=== PATIENT | male | born 1945 | race Caucasian/White ===

== ENCOUNTER 2017-11-02 11:18 | Outpatient (CLI) | payer MEDICARE, BC, SELFPAY ==
[2017-11-02 12:51] LABS: Abs Immature Grans 0.01 k/cumm (0.0-0.09); Absolute Basophil Count 0.03 k/cumm (0.0-0.2); Absolute Eosinophil Count 0.14 k/cumm (0.0-0.7); Absolute Lymphocyte Count 1.65 k/cumm (1.2-3.4); Absolute Monocyte Count 0.55 k/cumm (0.11-0.7); Absolute Neutrophil Count 4.17 k/cumm (1.2-6.7); Basophils % 0.5; Eosinophils % 2.1; HCT 45.6 % (40.0-50.0); HGB 15.2 g/dL (13.5-17.5); Immature Grans % 0.2; Lymphocytes % 25.2; Mean Corp. HGB Concentration 33.3 g/dL (32.0-36.0); Mean Platelet Volume 11.6 fL (8.0-11.0); Monocytes % 8.4; Neutrophils % 63.6; Platelet Count 210 x1000/uL (130-400); RBC 4.75 m/cumm (4.50-6.00); RBC Distribution Width 13.6 % (11.8-14.1); White Blood Cell Count 6.55 k/cumm (4.4-10.8)
[2017-11-02 14:13] LABS: ALT 24 U/L (12-78); AST 21 U/L (15-37); Albumin 3.8 g/dL (3.4-5.0); Alkaline Phosphatase 65 U/L (46-116); Anion Gap 8.5 mmol/L (3-11); BUN 18 mg/dL (7-18); Bilirubin, Total 0.5 mg/dL (0.2-1.0); CO2 27.5 mmol/L (21.0-32.0); CREATININE 1.03 mg/dL (0.70-1.30); Calcium 9.3 mg/dL (8.5-10.1); Chloride 104 mmol/L (98-107); Glucose 80 mg/dL (70-100); Potassium 4.2 mmol/L (3.5-5.1); Sodium 140 mmol/L (136-145); Total Protein 7.3 g/dL (6.4-8.2)
[2017-11-02 17:19] LABS: ESR 12 MM/HR (1-20)
== END 2017-11-02 11:38 ==
PROVIDERS: PCP Family Medicine; Visit Provider Family Medicine
DX: R51 Headache (principal)
CPT/HCPCS: 36415; 80053; 85652; 85025

== ENCOUNTER 2017-11-04 01:16 | Outpatient (CLI) | payer MEDICARE, BC, SELFPAY ==
--- NOTE | 2017-11-04 12:38 | DI.CT_ITS ---
SYMPTOMS/DIAGNOSIS: LEFT-SIDED RETROORBITAL HEADACHE, R51 CRANIAL CT: A noncontrast enhanced examination was performed. Mild atrophic changes are noted consistent with the patient's age. There is no evidence of an intra/extra -axial hemorrhage, edema, mass or territorial infarct. There are small ill- defined areas of diminished absorption in the frontoparietal white matter bilaterally consistent with small vessel disease. The ventricles are normal. There is no evidence of a skull fracture. As visualized, the bony orbits and intraorbital contents appear intact. There are small retention cysts in the inferior portion of the right maxillary antrum. The paranasal sinuses are otherwise unremarkable. There is no evidence of a mastoid effusion. SUMMARY: Atrophic changes and evidence of small vessel disease. No evidence of a hemorrhage, mass or infarct.
== END 2017-11-04 01:36 ==
PROVIDERS: PCP Family Medicine; Visit Provider Family Medicine
DX: R51 Headache (principal); I67.9 Cerebrovascular disease, unspecified; G31.9 Degenerative disease of nervous system, unspecified
CPT/HCPCS: 70450

== ENCOUNTER 2018-01-21 09:57 | Outpatient (CLI) | payer MEDICARE, BC, SELFPAY ==
[2018-01-21 13:14] LABS: TSH 1.45 uIU/mL (0.358-3.74)
== END 2018-01-21 10:17 ==
PROVIDERS: PCP Family Medicine; Visit Provider Family Medicine
DX: R53.83 Other fatigue (principal)
CPT/HCPCS: 36415; 84443

== ENCOUNTER → 2018-02-25 10:19 | Outpatient (BNVA) | payer MEDICARE, BC, SELFPAY | PROVIDERS: PCP Family Medicine; Referring Provider Family Medicine; Visit Provider Physical Therapy Assistant | DX: Z12.11 Encounter for screening for malignant neoplasm of colon (principal); Z86.010 Personal history of colon polyps; Z79.82 Long term (current) use of aspirin; I10 Essential (primary) hypertension ==

== ENCOUNTER 2018-03-04 07:18 | Day surgery (SDC) | payer MEDICARE, BC, SELFPAY ==
[2018-03-04 07:37] VITALS: BP 136/79; PULSE 70; RESP 16; TEMP 35.5; O2SAT 95
[2018-03-04] MEDS: Lactated Ringers 1,000 ML 80 ML IV (07:56)
--- NOTE | 2018-03-04 09:53 | BOWEL_PTH ---
PATIENT: Andrew Lim LOC: [facility] U#:[id number] AGE/SX: 72/M ROOM: RE03/04/[address]: Valentino Aden III : 1945 BED: DIS: 03/04/2018 SPEC #: [id number] RECD: 03/04/18 12:58 STATUS: MARLON RELina #: [id number] RANJANA: 03/04/18 09:[address]: Valentino Aden III DEPT: Surgical Specimen RECD BY: Nirali Berg ENTERED: 03/04/18 12:59 SP TYPE: Bowel OTHR DR: Mu Blanco MD Tissues: 1 - BIOPSY BOWEL 2 - BIOPSY BOWEL Procedures: GROSS AND MICRO LEVEL 4 Comments: [id number]
--- NOTE | 2018-03-04 11:02 | W.COLOREPORT ---
Date of service: 03/04/18 Time of Service: 11:02 Colonoscopy Report Date of procedure: 03/04/18 Pre-op diagnosis general: screening colonoscopy Post-op diagnosis procedure note: other (chacon diverticulosis, cecal polyp, sigmoid polyps) Procedure: colonoscopy Surgeon: Valentino Aden III Anesthesia proc note operative: MAC Pathology: other (2 polyps sigmoid, one cecum) Complications: None Disposition: PACU Prep: TenzinYTERODOLFO Procedure Description: After informed consent was obtained the patient was taken to the procedure room and placed in a left decubitous position. Monitors were applied and a time out was done. The patients name, date of , procedure, allergies to medications and metal in their body was reviewed. The patient was then sedated. Once sedated and comfortable a rectal exam was done. External exam was normal. Internal exam revealed a normal sphincter tone and no palpable masses. The prostate normal. The scope was then introduced and retrofelexed. one internal hemorrhoids were identified. The scope was then advanced to the cecum moderate difficulty due to chacon-diverticulosis. The TI and appendiceal orifice were identified. The prep was adequate. The scope was then slowly retracted over 10 minutes back into the rectum. Polyps were removed at sigmois and cecum. The scope was removed and the patient was woken up and taken back to Same day surgery in stable condition. The patient tolerated the procedure well and there were no immediate complications. Follow up: The patient should follow up in 3 years unless they develop changes in bowel habits or other new gastrointestinal complaints.
--- NOTE | 2018-03-04 11:05 | W.PM.DSUDISC ---
Discharge Plan Disposition Patient Disposition: HOME Condition: Stable Discharge Details Reason For Visit: screening colonoscopy Attending Provider: Valentino Aden III Primary Care Provider: Mu Blanco Home Meds and New Rx's Prescriptions: Continued clobetasol-emollient 0.05 % cream 15 gm Topical BID Qty: 1 RF: 2 bisacodyl [Dulcolax (bisacodyl)] 5 mg tablet,delayed release (DR/EC) 5 mg PO ONCE Qty: 4 RF: 0 polyethylene glycol 3350 17 gram/dose powder 255 g PO ONCE Qty: 255 RF: 0 omeprazole 40 mg capsule,delayed release(DR/EC) 40 mg PO DAILY Qty: 90 RF: 4 ibuprofen 200 mg capsule 400 mg PO BID PRNRF: 0 simvastatin 40 mg tablet 40 mg PO DAILY Qty: 90 RF: 4 aspirin [Adult Low Dose Aspirin] 81 MG tablet,delayed release (DR/EC) 1 tab PO DAILY RF: 0 acetaminophen [Acetaminophen Extra Strength] 500 MG tablet 1,000 mg PO TID PRN PRNQty: 60 RF: 0 Discharge Instructions Stand Alone Forms: Colonoscopy Post Instructions, Kathrine Benavides (DSU) Activity:: Activity as Tolerated Diet:: As Tolerated Discharge Orders Discharge Orders: Discharge Order (Routine); Ordered 03/04/18 Ordered By: Valentino Aden III DS: Diagnosis Discharge Diagnosis (1) Sessile colonic polyp: Status: Chronic (2) Diverticulosis: Status: Acute
[2018-03-04 11:40] VITALS: BP 111/68; PULSE 53; RESP 16; TEMP 35.2; O2SAT 99
== END 2018-03-04 11:55 | disposition home or self-care (01) ==
PROVIDERS: PCP Family Medicine; Visit Provider Surgery
PROC: 0DJD8ZZ Inspection of Lower Intestinal Tract, Via Natural or Artificial Opening Endoscopic (ICD-10-PCS; CPT 45378; principal; 2018-03-04 08:30)
DX: Z12.11 Encounter for screening for malignant neoplasm of colon (principal); D12.0 Benign neoplasm of cecum; K63.5 Polyp of colon; K57.30 Diverticulosis of large intestine without perforation or abscess without bleeding; K64.0 First degree hemorrhoids; Z86.010 Personal history of colon polyps; Z87.19 Personal history of other diseases of the digestive system; I10 Essential (primary) hypertension; K21.9 Gastro-esophageal reflux disease without esophagitis; F17.210 Nicotine dependence, cigarettes, uncomplicated
CPT/HCPCS: 45380; 88305

== ENCOUNTER 2019-02-03 01:20 | Outpatient (CLI) | payer MEDICARE, BC, SELFPAY ==
[2019-02-03 11:37] LABS: BUN 19 mg/dL (7-18); CREATININE 1.08 mg/dL (0.70-1.30); Calcium 8.9 mg/dL (8.5-10.1); Chloride 103 mmol/L (98-107); Glucose 88 mg/dL (74-106); Potassium 4.6 mmol/L (3.5-5.1); Sodium 138 mmol/L (136-145)
== END 2019-02-03 01:40 ==
PROVIDERS: PCP Family Medicine; Visit Provider Family Medicine
DX: I10 Essential (primary) hypertension (principal)
CPT/HCPCS: 36415; 80048; 80061

== ENCOUNTER 2019-02-09 03:09 | Outpatient (CLI) | payer MEDICARE, BC, SELFPAY ==
[2019-02-09 11:22] LABS: Calculated LDL 107 mg/dL; Cholesterol 196 mg/dL (<200); HDL Cholesterol 67 mg/dL (40-60); Triglyceride 111 mg/dL (<150)
== END 2019-02-09 03:29 ==
PROVIDERS: PCP Family Medicine; Visit Provider Family Medicine
DX: E78.5 Hyperlipidemia, unspecified (principal)
CPT/HCPCS: 36415; 80061

== ENCOUNTER 2020-03-04 05:09 | Outpatient (CLI) | payer MEDICARE, BC, SELFPAY ==
[2020-03-04 13:12] LABS: CREATININE 1.02 mg/dL (0.70-1.30); Calculated LDL 77 mg/dL (<100); Cholesterol 160 mg/dL (<200); Glucose 98 mg/dL (74-106); HDL Cholesterol 64 mg/dL (40-60); Potassium 4.5 mmol/L (3.5-5.1); Triglyceride 95 mg/dL (<150)
== END 2020-03-04 05:29 ==
PROVIDERS: PCP Nurse Practitioner; Visit Provider Nurse Practitioner
DX: E78.5 Hyperlipidemia, unspecified (principal); I10 Essential (primary) hypertension
CPT/HCPCS: 36415; 80061; 82947; 82565; 84132

== ENCOUNTER 2020-09-04 13:03 | Outpatient (REF) | payer MEDICARE, BC, SELFPAY ==
[2020-09-05 11:55] LABS: COVID-19 RT-PCR UVMMC Result Negative (Negative)
== END 2020-09-04 13:04 | disposition home or self-care (01) ==
LOC: LBN 13:03
PROVIDERS: PCP Nurse Practitioner; Visit Provider Nurse Practitioner Family
DX: Z20.822 Contact with and (suspected) exposure to COVID-19 (principal)
CPT/HCPCS: U0003; U0005

== ENCOUNTER 2020-11-15 03:53 | Outpatient (CLI) | payer MEDICARE, BC, SELFPAY ==
--- NOTE | 2020-11-15 07:00 | DI.RAD_ITS ---
Exam(s) XR CHEST 2V PA LATERAL EXAM: XR CHEST 2V PA LATERAL CLINICAL HISTORY: recent cough,R05 TECHNIQUE: 2D digital imaging was performed. COMPARISON: CR CHEST 2 VIEWS PA,LAT from 02/12/2014 FINDINGS: The heart is not enlarged. The lungs are clear and well expanded. No pleural effusion seen. Mediastin al contours appear intact. IMPRESSION: Normal chest. RADIATION DOSE DELIVERED: Total DLP
== END 2020-11-15 04:13 ==
PROVIDERS: PCP Nurse Practitioner; Visit Provider Nurse Practitioner
DX: R05.8 Other specified cough (principal)
CPT/HCPCS: 71046

== ENCOUNTER 2021-02-28 01:46 | Outpatient (CLI) | payer MEDICARE, BC, SELFPAY ==
[2021-02-28 09:03] LABS: Anion Gap 7.2 mmol/L (3-11); BUN 17 mg/dL (7-18); CO2 29.8 mmol/L (21.0-32.0); Calcium 9.2 mg/dL (8.5-10.1); Calculated LDL 78 mg/dL (<100); Chloride 97 mmol/L (98-107); Cholesterol 163 mg/dL (<200); Glucose 89 mg/dL (74-106); HDL Cholesterol 69 mg/dL (40-60); Potassium 4.7 mmol/L (3.5-5.1); Sodium 134 mmol/L (136-145); Triglyceride 81 mg/dL (<150)
== END 2021-02-28 01:47 | disposition home or self-care (01) ==
LOC: LBO 01:47
PROVIDERS: PCP Nurse Practitioner; Visit Provider Nurse Practitioner
DX: I10 Essential (primary) hypertension (principal)
CPT/HCPCS: 36415; 80048; 80061

== ENCOUNTER → 2021-07-11 10:42 | Outpatient (BNVA) | payer MEDICARE, BC, SELFPAY | PROVIDERS: PCP Nurse Practitioner; Referring Provider Nurse Practitioner; Visit Provider Physical Therapy Assistant | DX: Z86.010 Personal history of colon polyps (principal); R19.4 Change in bowel habit | CPT/HCPCS: 99203 ==

== ENCOUNTER → 2021-07-17 01:49 | Outpatient (CLI) | payer MEDICARE, BC, SELFPAY ==
--- NOTE | 2021-07-17 07:30 | DI.CTLCSR_ITS ---
Exam(s) CT CHEST LUNG CANCER SCREEN EXAM: CT CHEST LUNG CANCER SCREEN CLINICAL HISTORY: Screening for lung cancer,CURRENT SMOKER,. TECHNIQUE: Imaging Protocol: Low Dose Technique CONTRAST MATERIAL: None COMPARISON: CR XR CHEST 2V PA LATERAL from 11/15/2020 FINDINGS: CHEST: LUNGS: There is a 2 millimeter nodule in the lateral aspect of the right upper lobe (series 2/image 3 8). There is also a 2 millimeters subpleural nodule in the right upper lobe lower down. In the opposite-left lung there are some benign-appearing atelectatic markings in the lingular segmen t. There are no pleural effusions on either side. No significant focal findings in the trachea and mainstem bronchi. MEDIASTINUM: There is no obvious hilar nor mediastinal adenopathy. CARDIAC: Heart size is normal. There is no pericardial effusion.Caliber of the thoracic aorta is wit hin normal limits. OTHER: OSSEOUS: Healed left-sided rib fractures noted. No acute fractures evident. No lytic osseous lesion s identified.. IMPRESSION: 1. Benign-appearing lung findings as described above. 2. No pleural effusions nor intrathoracic adenopathy evident. 3. Lung RADS Cat 2 - Benign Appearance / Behavior: Nodules with a very low likelihood of becoming a c linically active cancer due to size or lack of growth Lung-RADS 1.0 CATEGORIES: Category 0 - Prior chest CT exam(s) being located for comparison. Category 1 - Annual screening in 12 months. No nodules or definitely benign nodules. Category 2 - Annual screening in 12 months. Benign appearance. Nodules with low likelihood of becomin g active cancer. Category 3 - 6-month follow-up. Probably benign. Short-term follow-up suggested. Nodules with low lik elihood of becoming active cancer. Category 4A - 3-month follow-up and CT/PET if >8 mm in size. Suspicious finding. Findings which requi re additional testing. Category 4B - Findings which require additional testing and tissue sampling. Category 4X - Category 3 or 4 nodules with additional features or imaging findings that increases the suspicion of malignancy. Modifier S- Potentially clinically significant findings (non lung cancer) RADIATION DOSE DELIVERED: 85.69mGy.cm Total DLP 1.84mGy CTDIvol DATA REPOSITORY: All CT scans at this facility are submitted to the National Radiology Data Registry (NRDR) Dose Index Registry (DIR) with the [employer] (A[employer]). RADIATION OPTIMIZATION: All CT scans at this facility use at least one of these dose optimization te chniques: automated exposure control; mA and/or kV adjustment per patient size (includes targeted exa ms where dose is matched to clinical indication); or iterative reconstruction.
== END ==
PROVIDERS: PCP Nurse Practitioner
DX: F17.210 Nicotine dependence, cigarettes, uncomplicated (principal); Z12.2 Encounter for screening for malignant neoplasm of respiratory organs; R91.8 Other nonspecific abnormal finding of lung field
CPT/HCPCS: 71271

== ENCOUNTER 2021-07-21 11:16 | Day surgery (SDC) | payer MEDICARE, BC, SELFPAY ==
--- NOTE | 2021-07-21 06:59 | W.COLOREPORT ---
Colonoscopy Report Date of procedure: 07/21/21 Pre-op diagnosis general: Colon cancer screening, hx of polyps Post-op diagnosis procedure note: other (polyps and severe diverticulosis) Procedure: Colonoscopy with polypectomy Surgeon: Diana Marie Anesthesia Type: General LMA/ETT Estimated blood loss (mL): 3 Pathology: other (Transverse polyp, rectal polyp x3) Complications: None Disposition: same day Indications: The patient is here for Colonoscopy pre-op. His last screening was in 2019 and was remarkable for tubular adenoma. He has no family history of colon cancer.? Patient describes having tenesmus and difficulty passing stools despite daily use of stool softener.? Denies having any bloody or black tarry stools. -Discussed colonoscopy bowel prep as well as the procedure. Discussed possible complications of the procedure to include bleeding, pain, perforation, missed small lesion/polyp, sore throat, aspiration and adverse reaction to the medications. Questions were answered to patient?s satisfaction. No guarantees were implied or given.? Prep: Miralax/Dulcolax Procedure Start Time: 12:52 Procedure End Time: 13:24 Retraction Time: 16 minutes Findings: Severe diverticulosis polyps Procedure Description: After informed consent was obtained the patient was taken to the procedure room and placed in a left decubitous position. Monitors were applied and a time out was done. The patients name, date of , procedure, allergies to medications and metal in their body was reviewed. The patient was then sedated. Once sedated and comfortable a rectal exam was done. External exam was normal. Internal exam revealed a normal sphincter tone and no palpable masses. The prostate felt smooth and slightly enlarged. The scope was then introduced and retro-flexed. No internal hemorrhoids, polyps or masses were identified on retro-flexion. The scope was then advanced to the cecum without difficulty. The ileocecal vlave and appendiceal orifice were identified. The prep was adequate. The scope was then slowly retracted over 16 minutes back into the rectum. Polyps were removed with cold forceps in the Transverse polyp and 3 in the rectum. There was severe chacon-diverticulosis noted. The scope was removed and the patient was woken up and taken back to Same day surgery in stable condition. The patient tolerated the procedure well and there were no immediate complications.
--- NOTE | 2021-07-21 07:00 | W.PM.DSUDISC ---
Discharge Plan Disposition Patient Disposition: HOME Condition: Good Discharge Details Reason For Visit: Colonoscopy Attending Provider: Diana Marie Primary Care Provider: Alejandra Miller Home Meds and New Rx's Prescriptions: Continued multivitamin Tablet 1 tab PO DAILY psyllium husk [Metamucil] 0.4 gram capsule 0.4 g PO DAILY nicotine 14 mg/24 hr patch 24 hour 1 patch transdermal DAILY Qty: 28 0RF nicotine 7 mg/24 hr patch 24 hour 1 patch transdermal Q24H Qty: 14 0RF lisinopril 40 mg tablet 40 mg PO DAILY Qty: 90 4RF simvastatin 40 mg tablet 40 mg PO DAILY Qty: 90 4RF omeprazole 40 mg capsule,delayed release(DR/EC) 40 mg PO DAILY Qty: 90 4RF bupropion HCl [Wellbutrin XL] 150 mg tablet extended release 24 hr 150 mg PO QAM Qty: 90 3RF aspirin [Adult Low Dose Aspirin] 81 MG tablet,delayed release (DR/EC) 1 tab PO DAILY Discontinued bisacodyl [Dulcolax (bisacodyl)] 5 mg tablet,delayed release (DR/EC) 5 mg PO ONCE Qty: 4 0RF Rx Instructions: Take according to provider's instructions for colonoscopy prep. polyethylene glycol 3350 17 gram/dose powder 17 g PO ONCE Qty: 238 0RF Rx Instructions: To be taken as directed by prescriber's office for colonoscopy prep. Discharge Instructions Instructions: Diverticulosis (DC), Colorectal Polyps (DC) Additional Instructions: Findings: 4 polyps Severe diverticulosis Follow up: only as needed. Please call if you develop: fevers >101.5 Nausea or Vomiting Abdominal pain that is not transient Rectal bleeding that is more then a tbsp A hard abdomen and inability to pass gas DAY SURGERY UNIT POST ENDOSCOPY INSTRUCTIONS Instructions for everyone who is given Anesthesia: For your safety, please do the following for the next 24 Hours: a. Do not drive or operate dangerous equipment b. Do not drink alcohol beverages or use any recreational drugs for the first 24 hours or while taking pain medications. The medications in your body may have a reaction that can be dangerous. c. Do not make any important decisions or sign any important papers 1. Generally there are no restrictions on your activity after a day or so has gone by, but you may feel a bit fatigued for a few days. 2. After you arrive home you may have a light meal and return to a normal diet as you can tolerate it without feeling sick to your stomach. 3. After surgery, you may feel pain or discomfort. This should be only transient, but if it persists please contact your doctor. 4. If there are any questions regarding the findings of your procedure, please feel free to contact your doctor. 6. If you are unable to contact your doctor with a problem, contact the hospital at [phone]. 7. Continue all your regular medications unless directed otherwise. I understand the above instructions and have no questions. Signature of Patient or Responsible Adult Escort Date/Time Name of Responsible Adult Escort Signature of Nurse Date/Time Activity:: Activity as Tolerated Diet:: high fiber diet Discharge Orders Discharge Orders: Discharge Order (Routine); Ordered 07/21/21 Ordered By: Diana Marie
[2021-07-21 11:34] VITALS: BP 114/69; PULSE 62; RESP 16; TEMP 36.5; O2SAT 97
[2021-07-21] MEDS: Lactated Ringers 1,000 ML 80 ML IV (12:29)
--- NOTE | 2021-07-21 13:10 | BOWEL_PTH ---
PATIENT: Andrew Lim LOC: [facility] U#:[id number] AGE/SX: 75/M ROOM: RE07/21/[address]: Diana Marie MD : 1945 BED: DIS: 07/21/2021 SPEC #: [id number] RECD: 07/21/21 16:30 STATUS: MARLON RELina #: [id number] RANJANA: 07/21/21 13:[address]: Diana Marie DEPT: Surgical Specimen RECD BY: Nirali Berg ENTERED: 07/21/21 16:31 SP TYPE: Bowel OTHR DR: Alejandra Miller, PhD COMMUNICATIONS DIRECTOR Tissues: 1 - BIOPSY BOWEL 2 - BIOPSY BOWEL Procedures: GROSS AND MICRO LEVEL 4 Comments:
[2021-07-21 13:30] VITALS: BP 126/73; PULSE 55; RESP 16; TEMP 36.6; O2SAT 99
--- NOTE | 2021-07-21 13:31 | W.ANESPOSTOP ---
Postoperative Evaluation Date, Time and Location Date Performed: 07/21/21 Time Performed: 13:31 Patient Location: Day Surgery Unit Vital Signs Most Recent Imported Vital Signs: Most Recent Vital Signs Temp Pulse Resp BP Pulse Ox 36.5 C 62 16 114/69 97 07/21/21 11:34 07/21/21 11:34 07/21/21 11:34 07/21/21 11:34 07/21/21 11:34 Pain Score Most Recent Pain Score: Most Recent Pain Score Pain Level 0 07/21/21 11:34 Assessment Mental Status: Awake (Alert & Oriented to Patient Baseline) Airway and Respiratory Function: Patent airway with normal (patient baseline) respiratory exam Cardiovascular Function: Hemodynamically Stable Hydration Status: Adequately Hydrated Nausea & Vomiting: No Nausea or Vomiting Pain: Pt. Denies Any Pain Peripheral Nerve Block: Patient did not receive a nerve block
--- NOTE | 2021-07-21 13:46 | W.ANESPRE ---
General Info Date of Service Date Performed: 07/21/21 Height: 5 ft 9 in Weight: 65.091 kg Body Mass Index (BMI): 21.2 Surgical Procedure: Operation Date: 07/21/21 12:35 Proposed Procedure Side Surgeon p Colonoscopy Diana Marie MD Actual Procedure Side Surgeon p Colonoscopy W/POLYPECTOMY Not Applicable Diana Marie MD Pre-Op Diagnosis Post-Op Diagnosis HX OF POLYPS DIVERTICULOSIS POLYP @ TRANSVERSE COLON & RECTUM (X3) Meds Allergies and Home Medications Allergies Allergy/AdvReac Type Severity Reaction Status Date / Time doxycycline Allergy Severe Anaphylaxsi Verified 07/21/21 11:29 s Home Medication Medication Instructions Recorded aspirin 81 mg tablet,delayed 1 tab PO DAILY 05/02/12 release (Adult Low Dose Aspirin) multivitamin 1 tab PO DAILY 11/08/20 nicotine 14 mg/24 hr daily 1 patch transdermal DAILY #28 ea 11/08/20 transdermal patch nicotine 7 mg/24 hr daily 1 patch transdermal Q24H #14 ea 11/08/20 transdermal patch psyllium husk 0.4 gram capsule 0.4 g PO DAILY 11/08/20 (Metamucil) lisinopril 40 mg tablet 40 mg PO DAILY #90 tabs 02/11/21 omeprazole 40 mg capsule,delayed 40 mg PO DAILY #90 tab-caps 02/11/21 release simvastatin 40 mg tablet 40 mg PO DAILY #90 tabs 02/11/21 bupropion HCl 150 mg 24 hr tablet, 150 mg PO QAM #90 tabs 07/01/21 extended release (Wellbutrin XL) Current Visit Medications: Current Medications Generic Name Dose Route Start Last Admin Trade Name Freq PRN Reason Stop Dose Admin Hyoscyamine Sulfate 0.125 mg 07/21/21 07:03 Hyoscyamine 0.125 Mg Sl/Oral/Chew SL DIRECTED PRN Ringer's Solution 1,000 mls @ 80 mls/hr 07/21/21 06:00 07/21/21 13:20 IV 08/17/21 23:59 80 mls/hr INFUSION GAUTAM Infusion IV Miscellaneous Supplies 1 each 07/21/21 06:00 Iv Access IV 08/17/21 23:59 DIRECTED GAUTAM Ondansetron HCl 4 mg 07/21/21 07:03 Ondansetron 4 Mg/2 Ml Vial IVP Q4H PRN PRN Nausea / Vomiting Sodium Chloride 0 ml 07/21/21 06:00 Normal Saline Flush 10 Ml Syr IV 08/17/21 23:59 PRN PRN Sodium Chloride 0 ml 07/21/21 06:00 Normal Saline 10 Ml Vial IJ 08/17/21 23:59 DIRECTED PRN Sterile Water 0 ml 07/21/21 06:00 Water,Injection,Sterile 10 Ml Vial IJ 08/17/21 23:59 DIRECTED PRN PFSH Active Problems Active Problems: Problem Status Onset Code Lung nodule < 6cm on CT R91.1 Bowel habit changes R19.4 Screening for colon cancer Z12.11 Medical History Medical History Benign prostatic hyperplasia Collagenous colitis (07/30/15) Diverticulosis Excessive cerumen in both ear canals Gastroesophageal reflux disease Hearing loss History of alcoholism History of tobacco use currently Smokes a pipe. Does inhale declines CT screen Hyperlipidemia Hypertension Osteoarthritis Primary osteoarthritis of both hands (01/10/15) Primary osteoarthritis of left foot (01/10/15) Raynaud's disease Rhinitis, chronic Sessile colonic polyp (07/12/15) Shoulder pain, right Trochanteric bursitis of right hip Tubular adenoma of colon (03/04/18) Dr Valentino Aden, [facility], Dr Marie recommends repeat 5 years. Weight loss Surgical History Surgical History Colonoscopy - IV Sedation (05/12/12) [facility] [place]; polyps (3) Vasectomy Tobacco Smoking/Tobacco Use Status: Current every day Substance Use Substance use: Never Substance use type: does not use Vital Signs and Lab Results Vital Signs Most Recent Vital Signs in EMR: Most Recent Vital Signs Temp Pulse Resp BP Pulse Ox 36.6 C 55 L 16 126/73 99 07/21/21 13:30 07/21/21 13:30 07/21/21 13:30 07/21/21 13:30 07/21/21 13:30 Lab Results Blood Type / Crossmatch: No Data to Display Complete Blood Count: No Data to Display Complete Metabolic Panel: No Data to Display Liver Function Panel: No Data to Display Coagulation Panel: No Data to Display Cardiac Panel: No Data to Display Arterial Blood Gas: No Data to Display Venous Blood Gas: No Data to Display Pancreas Panel: No Data to Display Thyroid Panel: No Data to Display Infectious Disease: No Data to Display Blood Cultures: No Data to Display Toxicology Panel: No Data to Display Anesthesia Assessment and Plan Anesthesia History Personal History: No History of Anesthesia Complications Family History: No Family History of Anesthesia Complications Exercise Tolerance Exercise Tolerance: Metabolic Equivalents>4 Pertinent Negatives Pertinent Negatives: No Major Cardiovascular Symptoms or Complaints and No Major Pulmonary Symptoms or Complaints Cardiac & Pulmonary Exam Cardiac Exam: Normal S1/S2 Heart Sounds Pulmonary Exam: Clear Bilateral Breath Sounds Implantable Cardiac Device Does patient have a Pacemaker or an ICD?: No Airway Exam Known Difficult Airway: No Mallampati Class: 2 Mouth Opening: Normal (> 3cm) Thyromental Distance: Greater than 3 cm Neck Range of Motion: Full ROM Neck Circumference: Normal Teeth Condition: Removable Dentures/Plates Upper (Removed for procedure) ASA Classification ASA Score: ASA 2 Emergency Case?: No NPO Status NPO Status: NPO Clears >2 hours, Solids >8 hours Anesthesia Plan Resuscitation Status: Full Code Anesthesia Technique: General Anesthesia Airway Planned: Natural Airway Monitors Used: Standard Monitors
[2021-07-21 13:47] VITALS: BMI 21.2
[2021-07-21 14:02] VITALS: BP 148/70; PULSE 53; RESP 16; TEMP 36.2; O2SAT 100
== END 2021-07-21 14:25 | disposition home or self-care (01) ==
LOC: SUR 11:16
PROVIDERS: PCP Nurse Practitioner; Visit Provider Surgery
PROC: 0DJD8ZZ Inspection of Lower Intestinal Tract, Via Natural or Artificial Opening Endoscopic (ICD-10-PCS; CPT 45378; principal; 2021-07-21 12:30)
DX: Z12.11 Encounter for screening for malignant neoplasm of colon (principal); K63.5 Polyp of colon; K57.30 Diverticulosis of large intestine without perforation or abscess without bleeding; K62.1 Rectal polyp
CPT/HCPCS: 45380; 88305

== ENCOUNTER 2022-07-07 11:13 | Outpatient (CLI) | payer MEDICARE, BC, SELFPAY ==
--- NOTE | 2022-07-07 11:00 | DI.RAD_ITS ---
Exam(s) XR CHEST 2V PA LATERAL EXAM: XR CHEST 2V PA LATERAL CLINICAL HISTORY: cough, r/o p neumonia R05.9 COUGH. TECHNIQUE: 2D digital imaging was performed. COMPARISON: CR XR CHEST 2V PA LATERAL from 11/15/2020 FINDINGS: 2 views: Heart size is normal. The mediastinum is not widened. Bilateral hyperinflation but no infiltrates nor pleural effusions. No pulmonary edema. No pneumotho rax. IMPRESSION: No acute pulmonary findings.Inflation but no infiltrates. No significant change compared to prior est x-ray of November 2020. DATA REPOSITORY: RADIATION DOSE DELIVERED:
== END 2022-07-07 11:33 ==
LOC: DI 11:14
PROVIDERS: Visit Provider Physician Assistant
DX: R05.3 Chronic cough (principal)
CPT/HCPCS: 71046

== ENCOUNTER 2022-07-29 02:00 | Outpatient (CLI) | payer OTHER, SELFPAY ==
--- NOTE | 2022-07-29 14:20 | DI.US_ITS ---
APPROVED REPORT EXAM: Comprehensive 2D, Doppler, and color-flow Echocardiogram Patient Location: Out-Patient [employer] Operator: Nayeli Brice RDCS (AE) Indications: Abnormal EKG Other Information Study Quality: Adequate Conclusion Normal left ventricular wall thickness and chamber size. Ejection fraction is 60 to 65%. Wall motio n is normal Normal right ventricular size and systolic function Both atria are normal in size There is no structural or hemodynamically significant valvular disease Right ventricular systolic pressure is normal at 25 mmHg Mildly dilated ascending aorta 3.53 cm Wall motion Left Ventricle The left ventricle is normal size. The left ventricular systolic function is normal. The left ventric ular ejection fraction is within the normal range. There is normal left ventricular wall thickness. T here is normal LV segmental wall motion. There is no ventricular septal defect visualized. LVEF is 60 -65%. Right Ventricle The right ventricle is normal size. The right ventricular systolic function is normal. Atria The left atrium size is normal. The right atrium size is normal. The interatrial septum is intact wit h no evidence for an atrial septal defect. Aortic Valve The aortic valve is normal in structure. Aortic valve is trileaflet. There is no aortic valvular sten osis. No aortic regurgitation is present. Mitral Valve The mitral valve is normal in structure. No evidence of mitral valve stenosis. Trace to mild mitral r egurgitation. Tricuspid Valve The tricuspid valve is normal in structure. There is no tricuspid valve stenosis. Trace tricuspid reg urgitation. The RVSP is 24.8 mmHg. Pulmonic Valve The pulmonary valve is normal in structure. There is no pulmonic valvular stenosis. There is no pulmo lori valvular regurgitation. Great Vessels The aortic root is normal in size. The ascending aorta is mildly dilated. Aortic arch is normal in ca liber. IVC is normal in size and collapses >50% with inspiration. Pericardium There is no pericardial effusion. 2D Dimensions IVSD d PLAX 0.92 cm M: 0.6-1.2 LV Vol A2C d MOD 119.3 mL LVPW d PLAX 0.90 cm M: 0.6 - 1.2 LV Vol A4C d MOD 114.5 mL LVID d PLAX 4.71 cm M: 4.2 - 5.8 LA vol/ BSA A4C s A-L 15.9 mL/m2 LVDs 3.20 cm M: 2.5 - 4.0 LA Area A4C s MOD 11.91 cm2 Ao Root d 3.37 cm M: 3.1 - 3.7 LV EF A4C MOD 60.4 % RA Area A4C 13.02 cm2 LV EF A2C MOD 65.1 % RA Vol/ BSA A4C s A-L 15.4 mL/m2 LV EF Biplane MOD 61.2 % Ao Asc Diam d 3.52 cm M: 2.6 - 3.4 SV 71.51 mL LV EF Teichholz 59.7 % SV Index 38.58 mL/m2 LVEF (Vincent's) 61.18 % M: 52 - 72 LV Volume 89.97 mL M: 62 - 150 LV Volume Index 48.37 mL/m2 M: 34 - 74 LV Vol Biplane MOD 116.9 mL FS 31.75 % M-Mode TAPSE 3.13 cm (M/F) >1.7 LV Diastology MV E' medial 0.072 (>0.07 m/s) E/A Ratio 0.8 LV E/e MED 6.55 (<14) MV E Vmax 0.47 (0.4-1.3 m/s) MV E' lateral 0.076 (>0.1 m/s) MV A Vmax 0.60 (0.4-1.3 m/s) LV E/e LAT 6.25 (<14) MV E/A Ratio 0.73 MV E/E' medial 6.59 MV E/E' lateral 6.27 Aortic Valve LVOT Area 3.65 cm2 AoV Area Vmax 3.01 cm2 LVOT Vmax 0.92 m/s AoV Area/ BSA (Vmax) 1.63 cm2/m2 LVOT Mean Олег. 0.55 m/s WILDER Mean Олег. 2.66 cm2 LVOT Peak Grad 3.4 mmHg WILDER Mean Олег. Index 1.43 cm2/m2 LVOT Mean Grad 1.4 mmHg LVOT VTI 0.211 m LVOT Diam s 2.15 cm AoV Vmax 1.12 m/s Velocity Ratio 0.82 AoV Mean Олег. 0.75 m/s AoV Peak Grad 5.0 mmHg LVOT SV 76.92 mL AoV Mean Grad 2.6 mmHg AoV VTI 0.252 m AoV Area VTI 3.05 cm2 AoV Area/ BSA (VTI) 1.65 cm/m2 Mitral Valve MV DT 303 (160-240 msec) MV PHT 88 msec MV Area PHT 2.51 cm2 MV VTI 0.212 m MV Area VTI 3.62 (4.0-6.0 cm2) Pulmonary Valve PV Vmax 0.82 (0.5-1.5 m/s) RVOT Peak Gr. 2.23 mmHg PV Peak Grad 2.7 mmHg RVOT Mean Gr. 1.10 mmHg PV Mean Grad 1.5 mmHg RVOT VTI 0.178 m PV VTI 0.191 m RVOT Vmax 0.75 m/s Tricuspid Valve TR Peak Grad 21.7 mmHg TR Vmax 2.33 m/s RA Pressure 3.00 mmHg RVSP (TR) 24.8 mmHg
== END 2022-07-29 02:20 ==
PROVIDERS: Visit Provider Physician Assistant
DX: R94.31 Abnormal electrocardiogram [ECG] [EKG] (principal)
CPT/HCPCS: 93306

== ENCOUNTER → 2023-04-14 04:26 | Outpatient (CLI) | payer OTHER, SELFPAY ==
--- NOTE | 2023-04-14 13:46 | DI.RAD_ITS ---
Exam(s) XR HIP RT COMPLETE AP PELVIS EXAM: XR HIP RT COMPLETE AP PELVIS CLINICAL HISTORY: [id number],RT HIP,ISCHIAL PAIN,M25.551. TECHNIQUE: 2D digital imaging was performed. Three views. COMPARISON: No exams were available for comparison FINDINGS: BONES: No acute fracture is present. No bony destructive lesion is seen. JOINTS: The hip joint spaces are maintained. There is mild spurring at the acetabula. Minimal spurr ing at the margin of the right femoral head. No dislocation present. SI joints and pubic symphysis are unremarkable. SOFT TISSUE: Vascular calcifications. IMPRESSION: Mild degenerative changes of the hips. DATA REPOSITORY: RADIATION DOSE DELIVERED:
--- NOTE | 2023-04-14 13:46 | DI.RAD_ITS ---
Exam(s) XR LUMBAR SPINE COMPLETE EXAM: XR LUMBAR SPINE COMPLETE CLINICAL HISTORY: [id number],LOW BACK PAIN,M54.50,RT RADICULOPATHY. TECHNIQUE: 2D digital imaging was performed. Five views. COMPARISON: No exams were available for comparison FINDINGS: BONES: No fracture or destructive lesion. Vertebral body heights are maintained. Mild facet hypertro phy identified. DISKS: Mild disc space narrowing at L3-4 and L4-5. Small endplate osteophytes noted at multiple leve ls. ALIGNMENT: Mild dextroscoliosis. SOFT TISSUE: Aortic calcified. No aneurysm. IMPRESSION: Degenerative changes and mild scoliosis. DATA REPOSITORY: RADIATION DOSE DELIVERED:
== END ==
PROVIDERS: PCP Physician Assistant; Visit Provider Physician Assistant
DX: M51.36 Other intervertebral disc degeneration, lumbar region (principal); M16.0 Bilateral primary osteoarthritis of hip
CPT/HCPCS: 72110; 73502

== ENCOUNTER 2023-09-22 15:53 | Emergency (ER) | payer OTHER, SELFPAY ==
[2023-09-22] VITALS (16 sets, daily range): BP systolic 66–111; BP diastolic 32–49; PULSE 68–81; RESP 13–22; TEMP 36.2–36.8; O2SAT 95–98
--- NOTE | 2023-09-22 15:45 | RT.EKG_ITS ---
APPROVED REPORT Exam: Resting ECG Reason for Exam: dizzy Patient Location: E HR:71 bpm ECG Measurements Heart Rate 71 AXIS MI 203 P 89 QRSd 137 QRS 77 QT 421 T 62 QTc 457 Conclusion Sinus rhythm, rate 71 RBBB with no priors available for comparison No STEMI
[2023-09-22] MEDS: Lactated Ringers 1,000 ML 1000 ML IV (16:10)
--- NOTE | 2023-09-22 16:14 | DI.CT_ITS ---
Exam(s) CT HEAD CERVICAL SPINE WO EXAM: CT HEAD CERVICAL SPINE WO CLINICAL HISTORY: Fall, head strike, no thinners. 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 There is small amount of fluid in the right m axillary sinus. Left maxillary sinus is clear. Sphenoid sinuses are clear as are the frontal sinuse s but there is opacification of ethmoidal air cells bilaterally. There are no mastoid effusions. No fluid in the middle ear cavities. There is no evidence of intracranial hemorrhage, mass effect, or shift of midline structures. There are no extra-axial fluid collections. Lateral ventricles are slightly prominent size but unchanged. Third ventricle unchanged in size. Fourth ventricle normal size. CERVICAL SPINE: There is no evidence of fracture nor listhesis. No significant prevertebral soft tissue swelling. There is chronic disc space narrowing at C5-6 and C6-7 levels. There is mild degenerative anterolist hesis of C4 upon C5 related to facet arthropathy. There is no facet malalignment. No significant osseous lesions evident. IMPRESSION: No acute intracranial findings on this noninfused CT scan of the brain.Defect in the right parietal b one of the skull is unchanged from 11/04/2017.. Mild paranasal sinus findings as described above. No evidence of cervical spine fracture, malalignment, nor acute compromise of the cervical spinal can al. Chronic multilevel degenerative disc disease and degenerative facet arthropathy. Report called by myself to the ER 09/22/2023 at 5:04 p.m. RADIATION DOSE DELIVERED: Total DLP DATA REPOSITORY: All CT scans at this facility are submitted to the National Radiology Data Registry (NRDR) Dose Index Registry (DIR) with the [employer] (A[employer]). RADIATION OPTIMIZATION: All CT scans at this facility use at least one of these dose optimization te chniques: automated exposure control; mA and/or kV adjustment per patient size (includes targeted exa ms where dose is matched to clinical indication); or iterative reconstruction.
--- NOTE | 2023-09-22 16:19 | W.ED.GENAD ---
Discharge Plan Disposition Patient Disposition: Home Condition: Stable Discharge Details Clinical Impression: Acute hypotension, Orthostasis, Closed head injury without loss of consciousness, Abrasion of elbow, right, Adverse effects of medication Primary Care Provider: Carri Pickering ED Provider: Dee Viramontes Home Meds and New Rx's Prescriptions: No Action multivitamin Tablet 1 tab PO DAILY psyllium husk [Metamucil] 0.4 gram capsule 0.4 g PO DAILY azithromycin 250 mg tablet 250 mg PO DAILY Rx Instructions: start on day 2 of therapy albuterol sulfate 90 mcg/actuation HFA aerosol inhaler 1 puff inhalation ONCE amoxicillin-pot clavulanate 875-125 mg tablet 1 tab PO Q12H Qty: 14 0RF benzonatate 100 mg capsule 100 mg PO TID PRN (Reason: cough) Qty: 14 0RF guaifenesin [Mucinex Fast-Max Chest-Congest] 100 mg/5 mL liquid 200 mg PO Q4H PRN (Reason: cough) Qty: 473 0RF lisinopril 40 mg tablet 40 mg PO DAILY Qty: 90 3RF simvastatin 40 mg tablet 40 mg PO DAILY Qty: 90 3RF omeprazole 40 mg capsule,delayed release(DR/EC) 40 mg PO DAILY Qty: 90 3RF tamsulosin 0.4 mg capsule 0.4 mg PO DAILY Patient Comments: TAKE ONE CAPSULE BY MOUTH EVERY DAY 30 MINUTES AFTER SAME MEAL Discharge Instructions Instructions: Orthostatic hypotension Additional Instructions: You were seen in the emergency department today for evaluation of dizziness and a fall, and had a full physical examination that was most concerning for a low blood pressure. You had laboratory studies that were reassuring and a CT scan of your head and your neck that did not show any broken bones or bleeding inside your brain. Your blood pressure improved with some fluids, and likely your new medication, tamsulosin, is contributing to your dizziness and low blood pressure. I recommend that you stop this medication for the next few days until you can be seen by your primary care provider at the OR. I recommend increasing your fluid intake and hydration, and avoiding alcohol and coffee as these can cause dehydration. If you have worsening dizziness, falls, change in responsiveness, or any other symptoms that cause you concern you should return to the emergency department immediately. Thank you for allowing us to be part of your care. HPI General Mode of arrival: wheelchair. Date/Time Provider Initiated Documentation: 09/22/23 16:01. Limitations to Documentation: no limitations. Information obtained by: patient and family. HPI Narrative: MDM: In brief, this is a 88-year-old male patient with a past medical history significant for lung nodule, nicotine and tobacco use, and a recent initiation of tamsulosin for BPH, presenting for evaluation of dizziness and fall with head strike, not on anticoagulation. My differential includes but is not limited to traumatic injuries as a result of the fall, including intracranial hemorrhage, skull fracture, cervical spine fracture. The patient has a skin tear to the right elbow but is otherwise without evidence of other significant traumatic injuries. I also considered etiologies for the fall including orthostasis, vasovagal syndrome, ACS. The patient did not lose consciousness, did not have seizure-like activity, and is currently without neurodeficits to significantly increase my concern for stroke. I considered metabolic and electrolyte derangements, kidney injury, dehydration, anemia. The patient was brought back to a room for stabilization and reevaluation given his low blood pressure in triage. The patient is mentating appropriately, had improvement of his blood pressure with Semi-Pal positioning. We will obtain laboratory studies to include CBC, CMP, magnesium, troponin, and obtain a CT Noncon head and C-spine. I did provide the patient with a liter of lactated Ringer's after confirming no history of heart failure given his ongoing low blood pressures with systolics in the 90s. ED Course: I obtained and interpreted an EKG, which shows a sinus rhythm with a right bundle branch block, no evidence of STEMI or other ischemic changes, no significant ectopy, nor interval abnormalities. There are no priors available for comparison and the patient is reassuringly chest pain-free. I interpreted the patient's laboratory studies, which shows no anemia, thrombocytopenia, or leukocytosis. His electrolytes are without significant abnormality, there is no evidence of kidney or liver dysfunction. His troponin is negative. Independently interpreted the patient's CT head and C-spine, which show no evidence of fracture or intracranial hemorrhage. On reassessment after the liter of IV fluids the patient's blood pressure has improved, he reports resolution of his dizziness, and orthostatic vital signs were obtained and were negative. I did personally watched the patient ambulate with steady gait, and with no reported symptoms of dizziness. I counseled the patient to hold his tamsulosin for the next few days until he can be seen by his outpatient provider for reassessment. I recommended increasing his hydration and maintaining good nutrition, and avoiding alcohol and caffeine which can contribute to dehydration. At this time, the patient has had a full medical evaluation and is safe for discharge to home. They are hemodynamically stable, ambulatory, and tolerating PO. They are understanding of the follow-up plan and return precautions. They left our facility without incident. Dee Viramontes MD HPI: This is an 78-year-old male patient with a past medical history significant for lung nodule, nicotine use disorder, alcohol use disorder, benign prostatic hypertrophy, presenting for evaluation of dizziness and a subsequent fall. The patient was outside on concrete, began to feel lightheaded and dizzy, and states that he fell backwards, striking the back of his head. He also landed on his right elbow. His dizziness persists. The patient reports that he has not been eating and drinking as well as he might be. He states that he had a beer today but has not had a nutritious breakfast. Recent changes to his health include initiation of Flomax 1 week ago. The patient reports that he has not had recent fevers, illness, or other injuries. reports that for the last several months she has noted that he seems to be sleeping more than typical, but has not noted any other acute changes. Exam: Gen: Awake and alert, in no apparent distress HEENT: Non-icteric sclera, pupils equal and reactive at 2 mm bilaterally Neck: Supple, no cervical spine tenderness or step-offs Lungs: No apparent respiratory distress, normal respiratory effort, lung sounds without wheezes, rhonchi, rales, occasional scattered crackles CV: Appears well perfused, no murmurs auscultated, strong and symmetrical distal pulses Abdomen: Non-distended, soft, nontender MSK: Moves 4 extremities without apparent limitation in ROM. There is no tenderness or step-offs of the T or L-spine's, pelvis stable to AP compression Skin: Visualized skin without rashes, cyanosis. Small skin tear appreciated right elbow, hemostatic Neuro: Gait deferred due to dizziness. Speaks in full, clear sentences. Cranial nerves II through XII intact and symmetrical bilaterally, no focal motor or sensory deficits. Alert and oriented to person, place, time, and event Psych: Appropriate for situation. Related Data Home Medications ?Medication ?Instructions ?Recorded ?Confirmed multivitamin 1 tab PO DAILY 11/08/20 09/22/23 psyllium husk 0.4 gram capsule 0.4 g PO DAILY 11/08/20 09/22/23 (Metamucil) guaifenesin 100 mg/5 mL oral 200 mg (10 mL) PO Q4H PRN cough 10/14/21 09/22/23 liquid (Mucinex Fast-Max Chest #473 mL Congestion) lisinopril 40 mg tablet 40 mg PO DAILY #90 tabs 01/14/22 09/22/23 omeprazole 40 mg capsule,delayed 40 mg PO DAILY #90 tab-caps 01/14/22 09/22/23 release simvastatin 40 mg tablet 40 mg PO DAILY #90 tabs 01/14/22 09/22/23 albuterol sulfate 90 mcg/actuation 1 puff inhalation ONCE 07/07/22 09/22/23 aerosol inhaler amoxicillin 875 mg-potassium 1 tab PO Q12H #14 tabs 07/07/22 09/22/23 clavulanate 125 mg tablet azithromycin 250 mg tablet 250 mg PO DAILY 07/07/22 09/22/23 benzonatate 100 mg capsule 100 mg PO TID PRN cough #14 caps 07/07/22 09/22/23 tamsulosin 0.4 mg capsule 0.4 mg PO DAILY 09/22/23 09/22/23 Previous Rx's ?Medication ?Instructions ?Recorded guaifenesin 100 mg/5 mL oral 200 mg (10 mL) PO Q4H PRN cough 10/14/21 liquid (Mucinex Fast-Max Chest #473 mL Congestion) lisinopril 40 mg tablet 40 mg PO DAILY #90 tabs 01/14/22 omeprazole 40 mg capsule,delayed 40 mg PO DAILY #90 tab-caps 01/14/22 release simvastatin 40 mg tablet 40 mg PO DAILY #90 tabs 01/14/22 amoxicillin 875 mg-potassium 1 tab PO Q12H #14 tabs 07/07/22 clavulanate 125 mg tablet benzonatate 100 mg capsule 100 mg PO TID PRN cough #14 caps 07/07/22 Allergies Allergy/AdvReac Type Severity Reaction Status Date / Time doxycycline Allergy Severe Anaphylaxsi Verified 09/22/23 16:20 s General Stated Complaint: Dizzy/Sync VAUGHN: 2 Course Vital Signs Vital signs: Vital Signs Temperature 36.2 C L 09/22/23 15:57 Pulse 72 09/22/23 15:57 Respiratory Rate 16 09/22/23 15:57 Blood Pressure 66/32 L 09/22/23 15:57 Pulse Oximetry 95 09/22/23 15:57 Temperature 36.2 C L 09/22/23 15:57 Pulse 72 09/22/23 15:57 Respiratory Rate 16 09/22/23 15:57 Respiratory Effort Normal, Non-Labored 09/22/23 16:11 Blood Pressure 66/32 L 09/22/23 15:57 Pulse Oximetry 95 09/22/23 15:57 Oxygen Delivery Method Room Air 09/22/23 15:57 Oxygen Flow Rate 0 09/22/23 15:57 Pain Level 5 09/22/23 15:57 Medical Decision Making Quality:SDOH Health Related Social Needs: No Data to Display PFSH All Active Problems (Updated 09/22/23 @ 17:53 by Dee Viramontes MD) Adverse effects of medication (Acute) Abrasion of elbow, right (Acute) Closed head injury without loss of consciousness (Acute) Orthostasis (Acute) Acute hypotension (Acute) Impacted cerumen of right ear (Acute) Impacted cerumen of left ear (Acute) Chronic coughing (Acute) Weight loss (Acute) Lung nodule < 6cm on CT (Acute) yearly CT screen for lung CA Bowel habit changes (Acute) Screening for colon cancer (Acute) Medical History Benign prostatic hyperplasia Collagenous colitis (07/30/15) Diverticulosis Excessive cerumen in both ear canals Gastroesophageal reflux disease Hearing loss History of alcoholism History of tobacco use QUIT 09/07/21 - nicotine patches helped Hyperlipidemia Hypertension Osteoarthritis Primary osteoarthritis of both hands (01/10/15) Primary osteoarthritis of left foot (01/10/15) Raynaud's disease Rhinitis, chronic Sessile colonic polyp (07/12/15) Shoulder pain, right Trochanteric bursitis of right hip Tubular adenoma of colon (03/04/18) Dr Valentino Aden, [facility], Dr Marie recommends repeat 5 years. Weight loss Surgical History Colonoscopy - IV Sedation (05/12/12) [facility] [place] polyps (3) Vasectomy Family History Mother , age 90 Essential hypertension Father , age 83 Essential hypertension Heart disease Sister , age 90 Neoplasm LUNG Brother , age 14 No problems noted. Maternal Grandfather Cancer Paternal Grandfather No problems noted. Maternal Grandmother No problems noted. Paternal Grandmother No problems noted. Sister No problems noted. Sister , 90 No problems noted. Sister , 90 No problems noted. Brother , 72 Heart disease Daughter No problems noted. Daughter No problems noted. Daughter No problems noted. Daughter No problems noted. Social History Smoking/Tobacco Use Status: Former Tobacco Use Quit Date: 09/07/21 Counseling given: support medications and other Details: Nicotine patches were helpful Smoking risk assessment performed?: Yes Alcohol Intake: current Alcohol Intake frequency: 3 or more drinks per day Alcohol type: beer and wine Drug use: Never Substance use type: does not use Caregiver/Support person: No Household members: spouse Housing: house What is your relationship status?: Panel score (0-1 are the most socially isolated patients): 1 Seatbelt use: always Do you feel safe at home: Yes Do you feel safe in your relationship?: Yes PAWSS Have you Been Recently Intoxicated or Drunk Within the Last 30 days?: No Have you Ever Experienced Previous Episodes of Alcohol Withdrawal?: No Have you ever Experienced Withdrawal Seizures?: No Have you ever Experienced Delirium Tremens(DT)s?: No Have you ever undergone Alcohol Rehabilitation Treatment (i.e, inpt ot outpatient treatment programs)?: No Have you ever Experienced Blackouts?: No Have you ever Combined Alcohol with other Downers within the last 90 days?: No Have you ever Combined Alcohol with any other Substance of Abuse during the last 90 days?: No Positive Blood Alcohol level on Presentation? [PCS.BAL]: No Evidence of Increased Autonomic Activity (i.e. HR>120, tremor, sweating, agitation, nausea)?: No Result: 0
[2023-09-22 16:24] LABS: Abs Immature Grans 0.03 10^3/uL (0.0-0.06); Absolute Basophil Count 0.04 10^3/uL (0.0-0.2); Absolute Eosinophil Count 0.26 10^3/uL (0.0-0.7); Absolute Lymphocyte Count 1.96 10^3/uL (1.2-3.4); Absolute Monocyte Count 0.78 10^3/uL (0.1-0.8); Absolute Neutrophil Count 4.55 10^3/uL (1.2-6.7); Basophils % 0.5 %; Eosinophils % 3.4 %; HCT 39.6 % (40.0-50.0); HGB 13.6 g/dL (13.5-17.5); Immature Grans % 0.4 %; Lymphocytes % 25.7 %; MCH 32.5 pg (27.0-33.0); MCHC 34.3 % (32.0-36.0); MCV 95 fL (80-95); MPV 10.1 fL (8.0-11.0); Monocytes % 10.2 %; Neutrophils % 59.8 %; Platelet Count 253 10^3/uL (130-400); RBC 4.19 10^6/uL (4.36-5.78); RDW 13.2 % (11.8-14.1); RDW-SD 45.4 fL; WBC 7.62 10^3/uL (4.4-10.8)
[2023-09-22 16:39] LABS: ALT 26 U/L (16-63); AST 25 U/L (15-37); Albumin 3.8 g/dL (3.4-5.0); Alkaline Phosphatase 62 U/L (46-116); BUN 18 mg/dL (7-18); Bilirubin, Total 0.55 mg/dL (0.2-1.0); CREATININE 1.3 mg/dL (0.70-1.30); Calcium 9.1 mg/dL (8.5-10.1); Chloride 100 mmol/L (98-107); Estimated GFR 55.53 (mL/min/1.73m2); Glucose 86 mg/dL (74-106); Magnesium 1.9 mg/dL (1.8-2.4); Potassium 3.7 mmol/L (3.5-5.1); Sodium 135 mmol/L (136-145); Total Protein 7.5 g/dL (6.4-8.2); Troponin I < 50 ng/L (< or =60)
== END 2023-09-22 17:53 | disposition home or self-care (01) ==
PROVIDERS: Emergency Provider Emergency Medicine; PCP Physician Assistant
DX: S00.83XA Contusion of other part of head, initial encounter (principal); S50.311A Abrasion of right elbow, initial encounter; R55 Syncope and collapse; I95.1 Orthostatic hypotension; T50.905A Adverse effect of unspecified drugs, medicaments and biological substances, initial encounter
CPT/HCPCS: 36415; 80053; 93005; 96360; 99284; 70450; 72125; 83735; 84484; 85025; 93010; 99283

== ENCOUNTER 2023-12-28 10:55 | Outpatient (CLI) | payer MEDICARE, BC, SELFPAY ==
--- NOTE | 2023-12-28 11:06 | DI.RAD_ITS ---
Exam(s) XR CHEST 2V PA LATERAL EXAM: XR CHEST 2V PA LATERAL CLINICAL HISTORY: eval pneumonia,r05.9,cough. TECHNIQUE: 2D digital imaging was performed. COMPARISON: CR XR CHEST 2V PA LATERAL from 07/07/2022 FINDINGS: 2 views: Heart size is normal. The mediastinum is not widened. Lungs are clear. No infiltrates nor pleural effusions. IMPRESSION: No acute pulmonary findings. DATA REPOSITORY: RADIATION DOSE DELIVERED:
== END 2023-12-28 11:15 ==
LOC: DI 10:55
PROVIDERS: PCP Physician Assistant; Visit Provider Nurse Practitioner Family
DX: R05.9 Cough, unspecified (principal)
CPT/HCPCS: 71046

== ENCOUNTER 2024-11-07 02:09 | Outpatient (CLI) | payer OTHER, SELFPAY ==
--- NOTE | 2024-11-07 08:18 | DI.MRI_ITS ---
Exam(s) MR LUMBAR SPINE WO EXAM: MR LUMBAR SPINE WO CLINICAL HISTORY: IL#[id number] LUMBAR RADICULOPATHY M54.16 AND MYELOPATHY. TECHNIQUE: Multiplanar multisequence MRI of the Lumbar spine was performed. COMPARISON: CR XR LUMBAR SPINE COMPLETE from 04/14/2023 FINDINGS: Conus medullaris is at normal level. There is no evidence of conus mass nor subjacent clumping of intrathecal nerve roots to suggest arachnoiditis. The distal thecal sac appears unremarkable.There is no evidence of Tarlov intrasacral cysts nor other significant findings within the sacral canal Bones:There are no fractures nor ominous osseous lesions in the lumbar vertebral bodies and visualized sacrum. There is a mild scoliosis convex right again noted, as evident on the prior plain films of April 2003. With respect to the individual levels... T12-L1: Unremarkable L1-2: Normal disc height and signal. No disc herniation nor central canal stenosis.No foraminal stenosis L2-3: Normal disc height. Mild relatively symmetrical annular bulging. No prominent focal disc herniation. Central canal dimensions are within normal limits.No foraminal stenosis.No facet arthropathy. L3-4: Preserved disc height. Mild annular bulging, slightly more so on the left side but there is no prominent disc herniation nor central canal stenosis. No significant facet arthropathy. No significant foraminal stenosis. L4-5: Mild disc space narrowing and there is approximately 1 cm right sided shift of L4 upon L5. There is broad annular bulging, slightly more so on the left side. There is mild central spinal canal stenosis. No foraminal stenosis on the right side. Mild degenerative changes in the right facet joint. On the left side there is some annular bulging in the floor of the exiting neural foramen and there is some degenerative changes in the left facet joint with increased signal within the synovial compartment of the left facet joint and a tiny degenerative synovial cyst coming off of the posterior aspect of the left facet joint, not compromising the canal. There is mild-moderate foraminal stenosis on the left side which is related to the asymmetric annular bulging as well as the 1 cm rightward shift of L4 vertebral body upon L5 vertebra body. There is no significant listhesis of L4 upon L5 at this level. L5-S1: This level exhibits some asymmetric narrowing on the right side of the disc space.. There is mild degenerative anterolisthesis of L5 upon S1, approximately 3 mm. This results in mild central spinal canal stenosis, compounded by significant degenerative changes the facet joints. Amount of dege nerative change in the right facet joint is more than is seen in the left facet joint and there is more prominent anterior slippage of L5 upon S1 on the right side of disc space as well as significant right-sided foraminal stenosis. There is no left-sided foraminal stenosis. Soft tissues: Small benign cyst in the left kidney incidentally noted. These do not require further workup. IMPRESSION: 1. The main findings are at the L4-5 and L5-S1 levels as described above. There are no prominent focal disc herniations but there is an element of mild-moderate central canal stenosis at both of these levels for reasons discussed above. There is also left-sided foraminal stenosis at L4-5 and right-sided foraminal stenosis at L5-S1 level. 2. There is mild asymmetric anterolisthesis of L5 upon S1 related to advanced degenerative changes in the right facet joint. There are more moderate degenerative changes in the left facet joint. 3. There is a degenerative scoliosis convex right noted, as was evident on plain films of April 2023. There is approximately 1 cm rightward shift of the L4 vertebral body upon the L5 vertebral body. Other findings as above. DATA REPOSITORY:
== END 2024-11-07 02:29 ==
PROVIDERS: PCP Physician Assistant; Visit Provider Physician Assistant
DX: M54.16 Radiculopathy, lumbar region (principal)
CPT/HCPCS: 72148